=== PATIENT | male | born 1985 | race Caucasian/White ===

== ENCOUNTER 2018-04-08 06:57 | Emergency (ER) | payer OTHER, SELFPAY ==
[2018-04-08 06:57] VITALS: BP 146/101; PULSE 94; RESP 16; TEMP 36.6; O2SAT 98; BMI 26.7
--- NOTE | 2018-04-08 07:11 | ED.VISSUMM ---
- ER Visit Summary Date of Service: 04/08/18 Chief Complaint: Swelling of his lips and tongue. History of Present Illness: The patient is a [address] of ADHD the only medication he takes his Strattera. Patient states early this morning he awoke with significant swelling of his lips and tongue. Currently denies any trouble swallowing or breathing. He is never had this happen before. He is on no blood pressure medications. He is on no CHELSEY inhibitors. The only thing out of the normal is he states he ate a lot of pineapple yesterday. He denies any significant itching. Physical Examination: Young male vital signs are stable. Currently he is in no distress but he has significant swelling of upper and lower lips tongue primarily anteriorly in the floor of his mouth. Currently is having no trouble breathing or swallowing. He is not drooling. There is no stridor. Posterior pharynx appears normal. The uvula and soft palate are not enlarged. Neck is nontender. No lymphadenopathy. Trachea midline. Lungs clear to auscultation bilaterally. Heart regular rhythm rate about 100. No murmur. Abdomen is soft and nontender. Normal bowel sounds no peritoneal signs. Back is unremarkable. Patient is moving all 4 extremities. Neurovascularly intact. Calves are nontender without edema. Skin is normal. No rash. Neurologically is awake and alert with no focal motor deficits. Test Results: None Emergency Department Course and Treatment: Patient has obvious angioneurotic edema. Due to the severity of his swelling he was treated aggressively with subcu epinephrine, IV Solu-Medrol, IV Benadryl and IV Pepcid. Multiple repeat exam patient progressively continued to get better. The swelling of his lips and tongue is better than half of what it was when he originally presented. He feels comfortable. And is fine being discharged home. He knows to return if worse. Use his EpiPen if needed. Treatment Plan: Discharge to home with a prescription for an EpiPen as needed. Prednisone 40 mg a day for 3 days as needed. Return if worse. Follow-up with his PCP. Disposition: Discharge Impression: Acute swelling of his lips and tongue secondary to angioneurotic edema This note was generated with [employer] software. It may contain incorrect words, spelling, and punctuation that were not noted in review of the chart prior to signing ED Disposition - Plan for ED Patient: Disposition: Home or Assisted Living Chief Complaint: Allergic Reaction Instructions: ED Angioedema Prescriptions: Epinephrine [Epi Pen (for allergic rxn)] 0.3 mg IM X1 #1 syringe Prednisone [Deltasone] 40 mg PO DAILY 3 Days tab Referrals: Jasmin Russell MD [Primary Care Provider] - Additional Instructions: Prednisone daily for the next 3 days to help resolve the swelling. Use EpiPen if your lips and tongue started swelling a lot worse.
[2018-04-08] MEDS: DiphenhydrAMINE 50 MG/ML Syringe IV (07:12)
[2018-04-08] MEDS: 0.9% Normal Saline 1,000 ML 100 ML IV (07:12)
[2018-04-08] MEDS: MethylPREDNISolone 125 MG/2 ML Vial IV (07:12)
--- NOTE | 2018-04-08 08:17 | ED.DEP ---
ED Disposition - Plan for ED Patient: Disposition: Home or Assisted Living Chief Complaint: Allergic Reaction Instructions: ED Angioedema Prescriptions: Epinephrine [Epi Pen (for allergic rxn)] 0.3 mg IM X1 #1 syringe Prednisone [Deltasone] 40 mg PO DAILY 3 Days tab Referrals: Jasmin Russell MD [Primary Care Provider] - Additional Instructions: Prednisone daily for the next 3 days to help resolve the swelling. Use EpiPen if your lips and tongue started swelling a lot worse.
[2018-04-08 09:05] VITALS: BP 127/83; PULSE 84; RESP 15; O2SAT 99
[2018-04-08 09:42] VITALS: BP 127/66; PULSE 71; RESP 16; O2SAT 98
--- OUTSIDE RECORDS SUMMARY | 2018-06-12 22:24 | XMS RPT_ITS ---
:1985 Author Organization [facility] Care Team Providers Name Role Phone Gucci Davila Attending Unavailable Jasmin Russell Primary Care Unavailable Elmer Alberto Attending Unavailable PROBLEMS PROBLEMS No Problem Records FoundPROCEDURES PROCEDURES No Procedure Records FoundRESULTS RESULTS EMERGENCY DEPARTMENT Observed: 04/08/2018 Status: F Source: [place] SUMMARY 4:05 PM [facility] [place] [facility] Medical Records Department [address] [place] [address] Emergency Department Summary 04/08/18 0711 MR#: [id number] Acct: [id number] Name: CHANI COLINDRES Rep #: [id number] : 1985 32 From: Gucci Davila MD PCP: Jasmin Russell MD Status: DEP ER - ER Visit Summary Date of Service: 04/08/18 Chief Complaint: Swelling of his lips and tongue. History of Present Illness: The patient is a [address] of ADHD the only medication he takes his Strattera. Patient states early this morning he awoke with significant swelling of his lips and tongue. Currently denies any trouble swallowing or breathing. He is never had this happen before. He is on no blood pressure medications. He is on no CHELSEY inhibitors. The only thing out of the normal is he states he ate a lot of pineapple yesterday. He denies any significant itching. Physical Examination: Young male vital signs are stable. Currently he is in no distress but he has significant swelling of upper and lower lips tongue primarily anteriorly in the floor of his mouth. Currently is having no trouble breathing or swallowing. He is not drooling. There is no stridor. Posterior pharynx appears normal. The uvula and soft palate are not enlarged. Neck is nontender. No lymphadenopathy. Trachea midline. Lungs clear to auscultation bilaterally. Heart regular rhythm rate about 100. No murmur. Abdomen is soft and nontender. Normal bowel sounds no peritoneal signs. Back is unremarkable. Patient is moving all 4 extremities. Neurovascularly intact. Calves are nontender without edema. Skin is normal. No rash. Neurologically is awake and alert with no focal motor deficits. Test Results: None Emergency Department Course and Treatment: Patient has obvious angioneurotic edema. Due to the severity of his swelling he was treated aggressively with subcu epinephrine, IV Solu-Medrol, IV Benadryl and IV Pepcid. Multiple repeat exam patient progressively continued to get better. The swelling of his lips and tongue is better than half of what it was when he originally presented. He feels comfortable. And is fine being discharged home. He knows to return if worse. Use his EpiPen if needed. Treatment Plan: Discharge to home with a prescription for an EpiPen as needed. Prednisone 40 mg a day for 3 days as needed. Return if worse. Follow-up with his PCP. Disposition: Discharge Impression: Acute swelling of his lips and tongue secondary to angioneurotic edema This note was generated with [employer] dictation software. It may contain incorrect words, spelling, and punctuation that were not noted in review of the chart prior to signing ED Disposition - Plan for ED Patient: Disposition: Home or Assisted Living Chief Complaint: Allergic Reaction Instructions: ED Angioedema Prescriptions: Epinephrine [Epi Pen (for allergic rxn)] 0.3 mg IM X1 #1 syringe Prednisone [Deltasone] 40 mg PO DAILY 3 Days tab Referrals: Jasmin Russell MD [Primary Care Provider] - Additional Instructions: Prednisone daily for the next 3 days to help resolve the swelling. Use EpiPen if your lips and tongue started swelling a lot worse. What to do if you have Problems For any increased pain, shortness of breath, bleeding, nausea or vomiting, chest pain, or any unexpected problems, contact your Primary Care Provider. Call [employer] [facility] ([phone]) or report to the closest Emergency Room. Call 911 if necessary. 01/16/19 1605 <Electronically signed by Gucci Davila MD> Date Gucci Davila MD Cosigner Signature (If Indicated): Date CC: Jasmin Russell MD DISCHARGE INSTRUCTION Observed: 04/08/2018 Status: F Source: [place] 4:05 PM [facility] [place] [facility] Medical Records Department [address] [place] [address] Discharge Instruction 04/08/18816 MR#: [id number] Acct: [id number] Name: CHANI COLINDRES Rep #: [id number] : 1985 32 From: Gucci Davila MD PCP: Jasmin Russell MD Status: DEP ER ED Disposition - Plan for ED Patient: Disposition: Home or Assisted Living Chief Complaint: Allergic Reaction Instructions: ED Angioedema Prescriptions: Epinephrine [Epi Pen (for allergic rxn)] 0.3 mg IM X1 #1 syringe Prednisone [Deltasone] 40 mg PO DAILY 3 Days tab Referrals: Jasmin Russell MD [Primary Care Provider] - Additional Instructions: Prednisone daily for the next 3 days to help resolve the swelling. Use EpiPen if your lips and tongue started swelling a lot worse. What to do if you have Problems For any increased pain, shortness of breath, bleeding, nausea or vomiting, chest pain, or any unexpected problems, contact your Primary Care Provider. Call [facility] ([phone]) or report to the closest Emergency Room. Call 911 if necessary. 04/08/181604 <Electronically signed by Gucci Davila MD> Date Gucci Davila MD Cosigner Signature (If Indicated): Date CC: Jasmin Russell MD ALLERGIES ALLERGIES DATE TYPE / CODE NAME / CODE REACTION SEVERITY SOURCE 04/08/2018 Drug sulfamethoxa Rash Unknown [facility] Allergy/4160 zole/[id number] Hospital 22375(SNOMED 827(RXNORM) Repository CT) 04/08/2018 Drug trimethoprim Rash Unknown [facility] Allergy/4160 /[id number]( Hospital 69971(SNOMED RXNORM) Repository CT) ENCOUNTERS ENCOUNTERS ADMIT/DISCHARGE ACCOUNT ADMITTING ENCOUNTER LOCATION SOURCE NUMBER CLASS 04/08/2018/ [id number] Emergency [place] [facility] ing:ED Repository 07/18/2017/ [id number] Ambulatory BMSBuilding:B [place] [facility] 5 MSElsaA [facility] [place] Repository PAYERS PAYERS ENCOUNTER GUARANTOR PAYER SUBSCRIBER SOURCE 04/08/2018 CHANI Darby Primary UBALDO A [facility] [id number] Insurance:MEDICAL COLOTTODOB: [facility] [id number] Number: Repository [id number]: 330 [id number] [phone] () Date:[id number] [address] [address]UP: 04/08/2018 Secondary NOT GIVENUNK [place] Insurance:SELF PAY [facility] Number: Effective Repository Date:2018-04-08 07/18/2017 CHANI Allison [facility] [id number] Insurance:MEDICAL ColottoDOB: [facility] [id number] Number: Repository [id number]: 330 [id number] [phone] () Date:[id number] [address] [address]EN: 07/18/2017 Secondary NOT GIVENUNK [place] Insurance:SELF PAY [facility] Number: Effective Repository Date:2017-07-18
== END 2018-04-08 09:43 | disposition home or self-care (01) ==
PROVIDERS: Emergency Provider Emergency Medicine; Family Provider Family Medicine; PCP Family Medicine
DX: T78.3XXA Angioneurotic edema, initial encounter (principal); F90.9 Attention-deficit hyperactivity disorder, unspecified type
CPT/HCPCS: 99284; J7030; J3490

== ENCOUNTER → 2018-05-29 16:08 | Outpatient (CLI) | payer OTHER, SELFPAY ==
[2018-05-29 17:33] LABS: Absolute Lymphocyte Count 1.51 X10^3/ul (0.83-4.51); Absolute Neutrophil Count 2.5 X10^3/uL (2.0-7.7); Basophil# 0.02 X10^3/uL; Basophil% 0.5 % (0-1); Eosinophil# 0.11 X10^3/uL; Eosinophils% 2.5 % (0-5); Hematocrit 42.9 % (40-54); Lymphocyte # 1.51 X10^3/ul (4.0); Lymphocyte % 34.5 % (19-41); Mean Corp Hgb Conc 32.6 g/gl (32-36); Mean Corpuscular Hgb 28.9 pg (27.0-32.0); Mean Corpuscular Volume 88.6 fL (80-94); Mean Platelet Vol. 12.4 fl (6.2-12.0); Monocyte# 0.25 X10^3/uL; Monocyte% 5.7 % (0-10); Neutrophil # 2.49 X10^3/uL (2.7-7.7); Neutrophil % 56.8 % (47-70); Platelet Count 188 K/mm3 (150-450); RBC Distribution Width CV 13.7 % (11.6-14.6); RBC Distribution Width SD 43.5 fl (35.1-43.9); Red Blood Count 4.84 M/mm3 (4.6-6.2); White Blood Count 4.4 K/mm3 (4.4-11.0)
[2018-05-29 17:34] LABS: POSITIVE COUNT NO; POSITIVE DIFFERENTIAL NO; POSITIVE MORPHOLOGY NO
[2018-05-29 17:38] LABS: Erythrocyte Sedimentation Rate 4 mm/hr (0-15)
[2018-05-29 17:53] LABS: Vitamin D,25 Hydroxy 13.1 ng/mL (29.95-100.01)
[2018-05-29 18:04] LABS: AST(SGOT) 14 U/L (15-37); Alanine Aminotransfer ALT/SGPT 22 U/L (16-61); Albumin, Serum 3.9 g/dL (3.2-5.0); Alkaline Phosphatase 51 U/L (45-117); BUN 15 mg/dL (7-18); Bilirubin, Direct 0.05 mg/dL (0.00-0.30); Creatinine, Serum 0.88 mg/dL (0.70-1.30); EST Glomerular Filtration Rate 107 mL/min (>60); Est Glom Filt Rate - Afr Amer 129 mL/min (>60); Globulin 3.2 g/dL (2.2-4.2); Glucose 89 mg/dL (74-106); Protein, Total 7.1 g/dL (6.4-8.2); Rheumatoid Factor < 10.0 IU/mL (<15); Thyroid Stim Hormone (TSH) 0.83 uIU/mL (0.358-3.74); Uric Acid 6.5 mg/dL (3.5-7.2)
[2018-06-02 13:36] LABS: Anti-Nuclear Antibody Test Negative (.)
[2018-06-03 16:36] LABS: C1 EST Inhibitor, Functional >109 (.); Thyroid Peroxidase AB 10 IU/mL (0-34)
== END ==
PROVIDERS: Family Provider Family Medicine; PCP Family Medicine; Referring Provider Specialist; Visit Provider Specialist
DX: E55.9 Vitamin D deficiency, unspecified (principal); T78.3XXA Angioneurotic edema, initial encounter; E07.9 Disorder of thyroid, unspecified
CPT/HCPCS: 36415; 80076; 82306; 82565; 82947; 83520; 84443; 84520; 84550; 85025; 85652; 86038; 86160; 86161; 86376; 86431

== ENCOUNTER → 2020-03-23 09:38 | Outpatient (CLI) | payer OTHER, SELFPAY ==
[2020-03-09 11:20] VITALS: BMI 30.3
[2020-03-23 10:17] LABS: Hematocrit 42.5 % (40-54); Hemoglobin 13.7 g/dL (13.0-16.5); Mean Corp Hgb Conc 32.2 g/dL (32-36); Mean Corpuscular Hgb 27.4 pg (27.0-32.0); Mean Platelet Vol. 12.6 fl (6.2-12.0); Platelet Count 180 K/mm3 (150-450); RBC Distribution Width CV 13.3 % (11.6-14.6); RBC Distribution Width SD 41.1 fl (35.1-43.9); White Blood Count 4.5 K/mm3 (4.4-11.0)
[2020-03-23 10:54] LABS: ALB/GLOB Ratio 1.1 RATIO (0.9-2.4); AST(SGOT) 13 U/L (15-37); Alanine Aminotransfer ALT/SGPT 29 U/L (16-61); Albumin, Serum 3.9 g/dL (3.2-5.0); Alkaline Phosphatase 42 U/L (45-117); Anion Gap 6 (5-15); BUN 14 mg/dL (7-18); BUN/Creat Ratio 15.6 RATIO (10-20); Chloride 105 mmol/L (98-107); EST Glomerular Filtration Rate 104 mL/min (>60); Est Glom Filt Rate - Afr Amer 125 mL/min (>60); Globulin 3.6 g/dL (2.2-4.2); Glucose 87 mg/dL (74-106); Protein, Total 7.5 g/dL (6.4-8.2); Sodium Level 137 mmol/L (136-145)
[2020-03-27 13:01] LABS: Trileptal-Oxcarbazepine 8 ug/mL (10-35)
== END ==
PROVIDERS: PCP Family Medicine; Referring Provider Psychiatry & Neurology Neurology; Visit Provider Psychiatry & Neurology Neurology
DX: G40.909 Epilepsy, unspecified, not intractable, without status epilepticus (principal)
CPT/HCPCS: 36415; 80053; 82542; 85027

== ENCOUNTER → 2020-04-21 06:15 | Outpatient (CLI) | payer OTHER, SELFPAY ==
[2020-03-09 11:20] VITALS: BMI 30.3
--- NOTE | 2020-04-21 07:54 | TELEMED_ITS ---
[facility] Telemed has confirmed receipt of a request for visit. This document confirms receipt of the order initiating the consult. To find the results of the consultation, please view the patient's reports for the scanned Telemed Consult.
== END ==
PROVIDERS: PCP Family Medicine; Referring Provider Psychiatry & Neurology Neurology; Visit Provider Psychiatry & Neurology Neurology
DX: G40.909 Epilepsy, unspecified, not intractable, without status epilepticus (principal)
CPT/HCPCS: 95819

== ENCOUNTER → 2020-04-28 07:54 | Outpatient (CLI) | payer OTHER, SELFPAY ==
[2020-04-28 08:08] LABS: Hematocrit 38.5 % (40-54); Hemoglobin 13.2 g/dL (13.0-16.5); Mean Corp Hgb Conc 34.3 g/dL (32-36); Mean Corpuscular Hgb 28.6 pg (27.0-32.0); Mean Corpuscular Volume 83.3 fL (80-94); Mean Platelet Vol. 11.6 fl (6.2-12.0); Platelet Count 184 K/mm3 (150-450); RBC Distribution Width CV 12.9 % (11.6-14.6); RBC Distribution Width SD 38.8 fl (35.1-43.9); Red Blood Count 4.62 M/mm3 (4.6-6.2); White Blood Count 3.3 K/mm3 (4.4-11.0)
[2020-04-28 08:41] LABS: ALB/GLOB Ratio 1.2 RATIO (0.9-2.4); AST(SGOT) 14 U/L (15-37); Alanine Aminotransfer ALT/SGPT 21 U/L (16-61); Albumin, Serum 3.8 g/dL (3.2-5.0); Alkaline Phosphatase 39 U/L (45-117); Anion Gap 8 (5-15); BUN 11 mg/dL (7-18); BUN/Creat Ratio 14.5 RATIO (10-20); Calcium,Total 8.6 mg/dL (8.5-10.1); Chloride 100 mmol/L (98-107); Creatinine, Serum 0.76 mg/dL (0.70-1.30); EST Glomerular Filtration Rate 126 mL/min (>60); Est Glom Filt Rate - Afr Amer 152 mL/min (>60); Globulin 3.3 g/dL (2.2-4.2); Glucose 99 mg/dL (74-106); Potassium 4.4 mmol/L (3.5-5.1); Protein, Total 7.1 g/dL (6.4-8.2); Sodium Level 131 mmol/L (136-145)
[2020-05-01 12:16] LABS: Trileptal-Oxcarbazepine 12 ug/mL (10-35)
== END ==
PROVIDERS: PCP Family Medicine; Visit Provider Psychiatry & Neurology Neurology
DX: G40.909 Epilepsy, unspecified, not intractable, without status epilepticus (principal)
CPT/HCPCS: 36415; 80053; 82542; 85027

== ENCOUNTER → 2020-06-23 11:23 | Outpatient (CLI) | payer OTHER, SELFPAY ==
[2020-06-23 12:36] LABS: Hematocrit 42.1 % (40-54); Hemoglobin 13.7 g/dL (13.0-16.5); Mean Corp Hgb Conc 32.5 g/dL (32-36); Mean Corpuscular Hgb 28.1 pg (27.0-32.0); Mean Corpuscular Volume 86.4 fL (80-94); Mean Platelet Vol. 12.6 fl (6.2-12.0); Platelet Count 188 K/mm3 (150-450); RBC Distribution Width CV 13.3 % (11.6-14.6); RBC Distribution Width SD 41.6 fl (35.1-43.9); Red Blood Count 4.87 M/mm3 (4.6-6.2); White Blood Count 4.2 K/mm3 (4.4-11.0)
[2020-06-23 12:50] LABS: Sodium Level 137 mmol/L (136-145)
[2020-06-27 17:01] LABS: Vitamin D 1,25-Dihydroxy 34.4 pg/mL (19.9-79.3)
== END ==
PROVIDERS: PCP Family Medicine; Referring Provider Psychiatry & Neurology Neurology; Visit Provider Psychiatry & Neurology Neurology
DX: E55.9 Vitamin D deficiency, unspecified (principal); G40.909 Epilepsy, unspecified, not intractable, without status epilepticus
CPT/HCPCS: 36415; 82652; 84295; 85027

== ENCOUNTER → 2020-11-13 06:13 | Outpatient (CLI) | payer OTHER, SELFPAY ==
[2020-11-13 07:45] LABS: Hematocrit 42.8 % (40-54); Hemoglobin 13.7 g/dL (13.0-16.5); Mean Corpuscular Hgb 27.6 pg (27.0-32.0); Mean Corpuscular Volume 86.3 fL (80-94); Mean Platelet Vol. 12.7 fl (6.2-12.0); Platelet Count 164 K/mm3 (150-450); RBC Distribution Width CV 13.4 % (11.6-14.6); RBC Distribution Width SD 41.7 fl (35.1-43.9); Red Blood Count 4.96 M/mm3 (4.6-6.2); White Blood Count 4.5 K/mm3 (4.4-11.0)
[2020-11-13 08:18] LABS: Anion Gap 6 (5-15); BUN 13 mg/dL (7-18); BUN/Creat Ratio 15.8 RATIO (10-20); Chloride 109 mmol/L (98-107); Creatinine, Serum 0.82 mg/dL (0.70-1.30); EST Glomerular Filtration Rate 114 mL/min (>60); Est Glom Filt Rate - Afr Amer 138 mL/min (>60); Glucose 93 mg/dL (74-106); Potassium 3.9 mmol/L (3.5-5.1); Sodium Level 139 mmol/L (136-145)
[2020-11-16 22:41] LABS: Trileptal-Oxcarbazepine 11 ug/mL (10-35)
== END ==
PROVIDERS: PCP Family Medicine; Referring Provider Nurse Practitioner Family; Visit Provider Nurse Practitioner Family
DX: E55.9 Vitamin D deficiency, unspecified (principal); D72.819 Decreased white blood cell count, unspecified; G40.909 Epilepsy, unspecified, not intractable, without status epilepticus
CPT/HCPCS: 36415; 80048; 82306; 82542; 85027

== ENCOUNTER → 2021-03-15 08:04 | Outpatient (CLI) | payer OTHER, SELFPAY ==
[2021-03-15 09:28] LABS: Anion Gap 10 (5-15); BUN 13 mg/dL (7-18); BUN/Creat Ratio 15.7 RATIO (10-20); Calcium,Total 8.9 mg/dL (8.5-10.1); Chloride 104 mmol/L (98-107); Creatinine, Serum 0.83 mg/dL (0.70-1.30); EST Glomerular Filtration Rate 114 mL/min (>60); Est Glom Filt Rate - Afr Amer 137 mL/min (>60); Glucose 101 mg/dL (74-106); Potassium 3.8 mmol/L (3.5-5.1); Sodium Level 138 mmol/L (136-145)
[2021-03-15 09:31] LABS: Vitamin D,25 Hydroxy 31.5 ng/mL
[2021-03-21 09:24] LABS: Trileptal-Oxcarbazepine 22 ug/mL (10-35)
== END ==
PROVIDERS: PCP Family Medicine; Referring Provider Nurse Practitioner Family; Visit Provider Nurse Practitioner Family
DX: E55.9 Vitamin D deficiency, unspecified (principal); G40.909 Epilepsy, unspecified, not intractable, without status epilepticus
CPT/HCPCS: 36415; 80048; 82306; 82542

== ENCOUNTER 2021-05-29 14:33 | Outpatient (CLI) | payer OTHER, SELFPAY ==
--- NOTE | 2021-05-29 15:10 | RAD_ITS ---
EXAM: XR ABDOMEN, 1 VIEW CLINICAL INDICATION: PRESENCE OF OTHER IMPLANTS AND GRAFTS TECHNIQUE: Frontal supine view of the abdomen/pelvis. This report was created using [employer] report generation technology. COMPARISON: None. FINDINGS: LOWER THORAX: No acute pathology. GASTROINTESTINAL TRACT: Stool throughout the colon. Non-obstructive. No bowel or stomach distention. ORGANS: Unremarkable as visualized. No organomegaly. No abnormal calcifications. BONES/JOINTS: No acute pathology. SOFT TISSUES: No acute pathology. VASCULATURE: An IVC filter is in place. OTHER FINDINGS: Partially visualized right and left intramedullary rods. RAD/Abdomen Single View IMPRESSION: 1. Partially visualized right and left intramedullary rods. 2. An IVC filter is in place. Electronically Signed: Mega Cotton MD at 15:26 EST Reading Location ID and State: [facility] / [place] , Service support ,
== END 2021-05-29 23:59 | disposition home or self-care (01) ==
PROVIDERS: PCP Family Medicine; Referring Provider Surgery; Visit Provider Surgery
DX: Z95.828 Presence of other vascular implants and grafts (principal)
CPT/HCPCS: 74018

== ENCOUNTER → 2022-06-29 | Outpatient (CLI) | payer OTHER, SELFPAY ==
[2022-06-29 08:15] LABS: Hematocrit 44.5 % (40-54); Mean Corp Hgb Conc 33.7 g/dL (32-36); Mean Corpuscular Hgb 28.4 pg (27.0-32.0); Mean Corpuscular Volume 84.1 fL (80-94); Mean Platelet Vol. 11.7 fl (6.2-12.0); Platelet Count 216 K/mm3 (150-450); RBC Distribution Width CV 12.7 % (11.6-14.6); RBC Distribution Width SD 38.8 fl (35.1-43.9); Red Blood Count 5.29 M/mm3 (4.6-6.2); White Blood Count 3.8 K/mm3 (4.4-11.0)
[2022-06-29 08:46] LABS: ALB/GLOB Ratio 1.2 RATIO (0.9-2.4); AST(SGOT) 16 U/L (15-37); Alanine Aminotransfer ALT/SGPT 37 U/L (16-61); Albumin, Serum 4.2 g/dL (3.2-5.0); Alkaline Phosphatase 50 U/L (45-117); Anion Gap 3 (5-15); BUN 7 mg/dL (7-18); BUN/Creat Ratio 9.2 RATIO (10-20); Calcium,Total 9.3 mg/dL (8.5-10.1); Chloride 103 mmol/L (98-107); Creatinine, Serum 0.76 mg/dL (0.70-1.30); EST Glomerular Filtration Rate 124 mL/min (>60); Est Glom Filt Rate - Afr Amer 149 mL/min (>60); Globulin 3.4 g/dL (2.2-4.2); Glucose 102 mg/dL (74-106); Potassium 3.9 mmol/L (3.5-5.1); Protein, Total 7.6 g/dL (6.4-8.2); Sodium Level 133 mmol/L (136-145)
[2022-07-02 14:42] LABS: Vitamin D 1,25-Dihydroxy 43.5 pg/mL (24.8-81.5)
[2022-07-02 20:44] LABS: Trileptal-Oxcarbazepine 8 ug/mL (10-35)
== END | disposition home or self-care (01) ==
LOC: LAB 07:39
PROVIDERS: PCP Family Medicine; Referring Provider Psychiatry & Neurology Neurology; Visit Provider Psychiatry & Neurology Neurology
DX: G40.909 Epilepsy, unspecified, not intractable, without status epilepticus (principal); E55.9 Vitamin D deficiency, unspecified
CPT/HCPCS: 36415; 80053; 82542; 82652; 85027

== ENCOUNTER → 2022-12-10 | Outpatient (CLI) | payer OTHER, SELFPAY ==
[2022-12-10 07:54] LABS: Hemoglobin 13.4 g/dL (13.0-16.5); Mean Corp Hgb Conc 34.4 g/dL (32-36); Mean Corpuscular Hgb 28.8 pg (27.0-32.0); Mean Corpuscular Volume 83.9 fL (80-94); Mean Platelet Vol. 11.3 fl (6.2-12.0); Platelet Count 219 K/mm3 (150-450); RBC Distribution Width CV 12.8 % (11.6-14.6); RBC Distribution Width SD 38.8 fl (35.1-43.9); Red Blood Count 4.65 M/mm3 (4.6-6.2); White Blood Count 3.8 K/mm3 (4.4-11.0)
[2022-12-10 08:36] LABS: ALB/GLOB Ratio 1.3 RATIO (0.9-2.4); AST(SGOT) 16 U/L (15-37); Alanine Aminotransfer ALT/SGPT 32 U/L (16-61); Alkaline Phosphatase 54 U/L (45-117); Anion Gap 6 (5-15); BUN 9 mg/dL (7-18); BUN/Creat Ratio 14.1 RATIO (10-20); Calcium,Total 8.7 mg/dL (8.5-10.1); Chloride 95 mmol/L (98-107); Creatinine, Serum 0.64 mg/dL (0.70-1.30); EST Glomerular Filtration Rate 151 mL/min (>60); Est Glom Filt Rate - Afr Amer 183 mL/min (>60); Glucose 88 mg/dL (74-106); Potassium 3.8 mmol/L (3.5-5.1); Sodium Level 128 mmol/L (136-145)
[2022-12-13 16:09] LABS: Trileptal-Oxcarbazepine 12 ug/mL (10-35)
== END | disposition home or self-care (01) ==
LOC: LAB 05:58
PROVIDERS: PCP Family Medicine; Referring Provider Psychiatry & Neurology Neurology; Visit Provider Psychiatry & Neurology Neurology
DX: G40.909 Epilepsy, unspecified, not intractable, without status epilepticus (principal)
CPT/HCPCS: 36415; 80053; 82542; 85027

== ENCOUNTER → 2022-12-16 | Outpatient (CLI) | payer OTHER, SELFPAY ==
[2022-12-16 07:46] LABS: Anion Gap 6 (5-15); BUN 11 mg/dL (7-18); BUN/Creat Ratio 15.9 RATIO (10-20); Calcium,Total 8.9 mg/dL (8.5-10.1); Chloride 99 mmol/L (98-107); Creatinine, Serum 0.69 mg/dL (0.70-1.30); EST Glomerular Filtration Rate 138 mL/min (>60); Est Glom Filt Rate - Afr Amer 167 mL/min (>60); Glucose 94 mg/dL (74-106); Potassium 3.5 mmol/L (3.5-5.1); Sodium Level 133 mmol/L (136-145)
== END | disposition home or self-care (01) ==
PROVIDERS: PCP Family Medicine; Referring Provider Family Medicine; Visit Provider Family Medicine
DX: E87.1 Hypo-osmolality and hyponatremia (principal)
CPT/HCPCS: 36415; 80048

== ENCOUNTER 2023-01-12 00:43 | Emergency (ER) | payer OTHER, SELFPAY ==
[2023-01-12 00:49] VITALS: BP 157/102; PULSE 70; RESP 14; TEMP 36.9; O2SAT 98; BMI 26.5
--- NOTE | 2023-01-12 01:13 | CT_ITS ---
INDICATION: altered mental EXAMINATION: CT BRAIN - CT Head or Brain W/O Contrast Injection TECHNIQUE: Multiple axial images were obtained of the head without intravenous contrast. A radiation dose optimization technique was used for this scan. IV Contrast dosage and agent: None. COMPARISON: None FINDINGS: BRAIN PARENCHYMA: No intra- or extra-axial hemorrhage. No evidence of acute infarct. No intracranial mass or mass effect. Mild periventricular and subcortical white matter hypodense chronic small vessel white matter ischemic change. There is preservation of the kaur/white matter interface. Posterior fossa structures are unremarkable. CSF SPACES: Mild global cerebral volume loss. No hydrocephalus. Basal cisterns are patent. CALVARIUM, SKULL BASE, PARANASAL SINUSES AND MASTOID AIR CELLS: No acute osseous finding. Scattered paranasal sinus mucoperiosteal thickening, most prominent in the bilateral ethmoid and left sphenoid sinuses.. Mastoid air cells are clear. ORBITS: Both globes, extraocular muscles, optic nerves and retrobulbar fat appear unremarkable. ASPECTS Score for Acute Strokes: 10 CT/Brain/Head without Contrast IMPRESSION: No CT evidence of acute intracranial hemorrhage or injury. Sinus disease. Electronically Signed: Alpesh Hu MD at 2:33 EDT ,
[2023-01-12 01:41] LABS: Absolute Lymphocyte Count 1.02 X10^3/uL (0.83-4.51); Absolute Neutrophil Count 4.9 X10^3/uL (2.0-7.7); Basophil# 0.04 X10^3/uL; Basophil% 0.6 % (0-1); Eosinophil# 0.19 X10^3/uL; Eosinophils% 2.9 % (0-5); Hematocrit 40.8 % (40-54); Hemoglobin 13.6 g/dL (13.0-16.5); Lymphocyte # 1.02 X10^3/ul (0.83-4.51); Lymphocyte % 15.5 % (19-41); Mean Corp Hgb Conc 33.3 g/dL (32-36); Mean Corpuscular Hgb 28.9 pg (27.0-32.0); Mean Corpuscular Volume 86.6 fL (80-94); Monocyte# 0.38 X10^3/uL; Monocyte% 5.8 % (0-10); NRBC Flagged by Analyzer 0 % (0-5); Neutrophil # 4.91 X10^3/uL (2.7-7.7); Neutrophil % 74.7 % (47-70); Platelet Count 223 K/mm3 (150-450); RBC Distribution Width CV 13.6 % (11.6-14.6); RBC Distribution Width SD 42.6 fl (35.1-43.9); Red Blood Count 4.71 M/mm3 (4.6-6.2); White Blood Count 6.6 K/mm3 (4.4-11.0)
[2023-01-12 01:44] VITALS: BP 157/108; PULSE 75; RESP 14; O2SAT 98
[2023-01-12 02:00] VITALS: BP 150/100; PULSE 69; RESP 13; O2SAT 98
[2023-01-12 02:04] LABS: Alcohol, Blood (Medical)-Serum < 3.0 mg/dL
[2023-01-12 02:05] LABS: AST(SGOT) 27 U/L (15-37); Alanine Aminotransfer ALT/SGPT 40 U/L (16-61); Albumin, Serum 4.2 g/dL (3.2-5.0); Alkaline Phosphatase 74 U/L (45-117); Anion Gap 10 (5-15); BUN 18 mg/dL (7-18); BUN/Creat Ratio 25.7 RATIO (10-20); Bilirubin, Direct 0.11 mg/dL (0.00-0.30); Calcium,Total 9.4 mg/dL (8.5-10.1); Chloride 104 mmol/L (98-107); EST Glomerular Filtration Rate 136 mL/min (>60); Est Glom Filt Rate - Afr Amer 164 mL/min (>60); Estimated Creatinine Clearance 171.25 ml/min; Globulin 3.5 g/dL (2.2-4.2); Glucose 91 mg/dL (74-106); Lactic Acid 1.6 mmol/L (0.4-1.9); Potassium 3.3 mmol/L (3.5-5.1); Protein, Total 7.7 g/dL (6.4-8.2); Sodium Level 142 mmol/L (136-145)
--- NOTE | 2023-01-12 02:10 | RAD_ITS ---
INDICATION: cough EXAMINATION/TECHNIQUE: X-RAY - XR Chest 2 Views COMPARISON: May 29 2021. FINDINGS: LINES/DEVICES: None. LUNGS: No consolidation, edema or effusion. No pneumothorax. MEDIASTINUM AND CARDIOVASCULAR STRUCTURES: Cardiac silhouette not enlarged. BONES AND SOFT TISSUES: Unremarkable. IVC filter partially seen. RAD/Chest PA and Lateral IMPRESSION: No radiographic evidence of acute cardiopulmonary disease. Electronically Signed: Alpesh Hu MD at 2:37 EDT ,
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
[2023-01-12 02:40] LABS: Amphetamine Urine VISTA NEGATIVE (<1000 ng/mL); Barbiturate Urine VISTA NEGATIVE (< 200 ng/mL); Benzodiazepine Urine VISTA NEGATIVE (< 200 ng/mL); Cocaine Urine VISTA NEGATIVE (< 300 ng/mL); Ecstacy Urine VISTA NEGATIVE (< 500 ng/mL); Methadone Urine VISTA NEGATIVE (< 300 ng/mL); PCP Urine VISTA NEGATIVE (< 25 ng/mL); THC Urine VISTA NEGATIVE (< 50 ng/mL); Vista UDS pH Range 7
[2023-01-12 02:58] VITALS: BP 147/99; PULSE 73; RESP 15; O2SAT 100
== END 2023-01-12 03:08 | disposition home or self-care (01) ==
PROVIDERS: Emergency Provider Emergency Medicine; PCP Family Medicine; Visit Provider Emergency Medicine
DX: R41.82 Altered mental status, unspecified (principal); G40.909 Epilepsy, unspecified, not intractable, without status epilepticus; F90.9 Attention-deficit hyperactivity disorder, unspecified type; Z87.820 Personal history of traumatic brain injury; Z79.899 Other long term (current) drug therapy
CPT/HCPCS: 70450; 71046; 80048; 80076; 80307; 82077; 82140; 83605; 85025; 99285; J7030; J7050; A4216

== ENCOUNTER → 2023-02-07 | Outpatient (CLI) | payer OTHER, SELFPAY ==
[2023-02-07 08:26] LABS: Hematocrit 38.2 % (40-54); Hemoglobin 12.7 g/dL (13.0-16.5); Mean Corp Hgb Conc 33.2 g/dL (32-36); Mean Corpuscular Hgb 27.9 pg (27.0-32.0); Mean Platelet Vol. 9.9 fl (6.2-12.0); Platelet Count 389 K/mm3 (150-450); RBC Distribution Width SD 39.8 fl (35.1-43.9); Red Blood Count 4.55 M/mm3 (4.6-6.2)
[2023-02-07 09:11] LABS: Ammonia < 10.0 umol/L (11-32)
[2023-02-07 09:17] LABS: ALB/GLOB Ratio 0.8 RATIO (0.9-2.4); AST(SGOT) 17 U/L (15-37); Alanine Aminotransfer ALT/SGPT 36 U/L (16-61); Albumin, Serum 3.5 g/dL (3.2-5.0); Alkaline Phosphatase 79 U/L (45-117); Anion Gap 5 (5-15); BUN 8 mg/dL (7-18); BUN/Creat Ratio 10.9 RATIO (10-20); Calcium,Total 9.3 mg/dL (8.5-10.1); Chloride 97 mmol/L (98-107); Creatinine, Serum 0.74 mg/dL (0.70-1.30); EST Glomerular Filtration Rate 128 mL/min (>60); Est Glom Filt Rate - Afr Amer 155 mL/min (>60); Globulin 4.5 g/dL (2.2-4.2); Glucose 104 mg/dL (74-106); Potassium 4.5 mmol/L (3.5-5.1); Sodium Level 130 mmol/L (136-145)
[2023-02-10 11:07] LABS: Vitamin D 1,25-Dihydroxy 59.9 pg/mL (24.8-81.5)
[2023-02-11 13:08] LABS: Lamotrigine (Lamictal) Level < 1.0 ug/mL (2.0-20.0); Trileptal-Oxcarbazepine 11 ug/mL (10-35)
== END | disposition home or self-care (01) ==
LOC: LAB 08:09
PROVIDERS: PCP Family Medicine; Referring Provider Psychiatry & Neurology Neurology; Visit Provider Psychiatry & Neurology Neurology
DX: G40.909 Epilepsy, unspecified, not intractable, without status epilepticus (principal); Z86.39 Personal history of other endocrine, nutritional and metabolic disease
CPT/HCPCS: 36415; 80053; 82140; 82542; 82652; 85027

== ENCOUNTER → 2023-10-31 | Outpatient (CLI) | payer OTHER, SELFPAY ==
[2023-10-31 09:30] LABS: Hematocrit 45.4 % (40-54); Hemoglobin 14.9 g/dL (13.0-16.5); Mean Corp Hgb Conc 32.8 g/dL (32-36); Mean Corpuscular Volume 88.3 fL (80-94); Mean Platelet Vol. 11.7 fl (6.2-12.0); Platelet Count 173 K/mm3 (150-450); RBC Distribution Width CV 12.9 % (11.6-14.6); RBC Distribution Width SD 41.6 fl (35.1-43.9); Red Blood Count 5.14 M/mm3 (4.6-6.2); White Blood Count 4.9 K/mm3 (4.4-11.0)
[2023-10-31 09:54] LABS: ALB/GLOB Ratio 1.2 RATIO (0.9-2.4); AST(SGOT) 14 U/L (15-37); Alanine Aminotransfer ALT/SGPT 25 U/L (16-61); Alkaline Phosphatase 59 U/L (45-117); Anion Gap 4 (5-15); BUN 14 mg/dL (7-18); BUN/Creat Ratio 16.5 RATIO (10-20); Chloride 110 mmol/L (98-107); Creatinine, Serum 0.85 mg/dL (0.70-1.30); EST Glomerular Filtration Rate 109 mL/min (>60); Est Glom Filt Rate - Afr Amer 131 mL/min (>60); Globulin 3.3 g/dL (2.2-4.2); Glucose 101 mg/dL (74-106); Potassium 4.1 mmol/L (3.5-5.1); Protein, Total 7.3 g/dL (6.4-8.2); Sodium Level 141 mmol/L (136-145)
[2023-11-04 13:08] LABS: Lamotrigine (Lamictal) Level 3.2 ug/mL (2.0-20.0); Trileptal-Oxcarbazepine 6 ug/mL (10-35)
== END | disposition home or self-care (01) ==
LOC: LAB 09:12
PROVIDERS: PCP Family Medicine; Referring Provider Psychiatry & Neurology Neurology; Visit Provider Psychiatry & Neurology Neurology
DX: G40.909 Epilepsy, unspecified, not intractable, without status epilepticus (principal)
CPT/HCPCS: 36415; 80053; 82140; 82542; 85027

== ENCOUNTER → 2024-07-17 | Outpatient (CLI) | payer OTHER, SELFPAY ==
[2024-07-17 07:43] LABS: Hematocrit 40.9 % (40-54); Hemoglobin 13.9 g/dL (13.0-16.5); Mean Corpuscular Volume 88.1 fL (80-94); Mean Platelet Vol. 11.4 fl (6.2-12.0); Platelet Count 179 K/mm3 (150-450); RBC Distribution Width CV 13.7 % (11.6-14.6); RBC Distribution Width SD 44.1 fl (35.1-43.9); Red Blood Count 4.64 M/mm3 (4.6-6.2)
[2024-07-17 08:10] LABS: ALB/GLOB Ratio 1.6 RATIO (0.9-2.4); AST(SGOT) 23 U/L (<=37); Alanine Aminotransfer ALT/SGPT 28 U/L (<=46); Albumin, Serum 4.3 g/dL (3.5-5.0); Alkaline Phosphatase 44 U/L (40-129); Anion Gap 8 (5-15); BUN 16 mg/dL (4-19); Calcium,Total 9.3 mg/dL (7.6-11.0); Carbon Dioxide 24.5 mmol/L (21.0-32.0); Chloride 107 mmol/L (98-108); Creatinine, Serum 0.94 mg/dL (0.70-1.20); EST Glomerular Filtration Rate 107 (>60); Globulin 2.7 g/dL (2.2-4.2); Glucose 105 mg/dL (70-99); Potassium 5.2 mmol/L (3.3-5.1); Sodium Level 139 mmol/L (133-145); Total Bilirubin 0.22 mg/dL (0.00-1.30)
[2024-07-17 08:11] LABS: Ammonia 12.5 umol/L (16-60)
== END | disposition home or self-care (01) ==
PROVIDERS: PCP Family Medicine; Referring Provider Psychiatry & Neurology Neurology; Visit Provider Psychiatry & Neurology Neurology
DX: G40.909 Epilepsy, unspecified, not intractable, without status epilepticus (principal)
CPT/HCPCS: 36415; 80053; 82140; 82542; 85027

== ENCOUNTER → 2025-02-24 | Outpatient (CLI) | payer OTHER, SELFPAY ==
[2025-02-24 10:04] LABS: Hematocrit 42.0 % (40-54); Hemoglobin 14.4 g/dL (13.0-16.5); Immature Granulocytes Count 0.040 X10^3/uL (0.0-0.0); Mean Corp Hgb Conc 34.3 g/dL (32-36); Mean Corpuscular Volume 85.2 fL (80-94); Mean Platelet Vol. 11.3 fl (6.2-12.0); NRBC Flagged by Analyzer 0 % (0-5); Platelet Count 157 K/mm3 (150-450); RBC Distribution Width CV 14.1 % (11.6-14.6); RBC Distribution Width SD 43.4 fl (35.1-43.9); Red Blood Count 4.93 M/mm3 (4.6-6.2); White Blood Count 5.1 K/mm3 (4.4-11.0)
[2025-02-24 10:15] LABS: Ammonia 40.7 umol/L (16-60)
[2025-02-24 10:36] LABS: AST(SGOT) 42 U/L (<=37); Alanine Aminotransfer ALT/SGPT 54 U/L (<=46); Albumin, Serum 4.5 g/dL (3.5-5.0); Alkaline Phosphatase 67 U/L (40-129); Anion Gap 13 (5-15); BUN 15 mg/dL (4-19); BUN/Creat Ratio 18.4 RATIO (10-20); Calcium,Total 9.1 mg/dL (7.6-11.0); Carbon Dioxide 23.7 mmol/L (21.0-32.0); Chloride 104 mmol/L (98-108); Globulin 3.1 g/dL (2.2-4.2); Glucose 113 mg/dL (70-99); Potassium 4.1 mmol/L (3.3-5.1)
[2025-03-01 08:10] LABS: Trileptal-Oxcarbazepine 12 ug/mL (10-35)
== END | disposition home or self-care (01) ==
LOC: MTLAB 08:22
PROVIDERS: PCP Family Medicine; Referring Provider Family Medicine; Visit Provider Family Medicine
DX: G40.909 Epilepsy, unspecified, not intractable, without status epilepticus (principal)
CPT/HCPCS: 36415; 80053; 82140; 82542; 85025